=== PATIENT | female | born 1970 | race Caucasian/White ===

== ENCOUNTER 2018-01-25 10:35 | Emergency (ER) | payer BC, MEDICAID ==
[~2018-01-25] VITALS: Ht 160 cm; Wt 81.6 kg
[2018-01-25 10:35] VITALS: BP 141/86
== END 2018-01-25 11:53 | disposition home or self-care (01) ==
LOC: ER 10:37
DX: S63.681A Other sprain of right thumb, initial encounter (principal); F90.9 Attention-deficit hyperactivity disorder, unspecified type; F41.9 Anxiety disorder, unspecified; X58.XXXA Exposure to other specified factors, initial encounter; Y93.89 Activity, other specified; Y92.89 Other specified places as the place of occurrence of the external cause; Y99.8 Other external cause status
CPT/HCPCS: 73130-TC; A4606; Z7610